=== PATIENT | female | born 1990 | race Caucasian/White ===

== ENCOUNTER 2024-11-28 14:02 | Observation (INO) | payer SELFPAY ==
[~2024-11-28] VITALS: Ht 165.1 cm; Wt 53.6 kg
== END 2024-11-29 10:10 | disposition left against medical advice (07) ==
LOC: ER 14:02 → MEDS 14:03
PROVIDERS: ADMIT Internal Medicine
DX: R57.1 Hypovolemic shock (principal); R65.10 Systemic inflammatory response syndrome (SIRS) of non-infectious origin without acute organ dysfunction; E87.20 Acidosis, unspecified; E87.1 Hypo-osmolality and hyponatremia; F17.210 Nicotine dependence, cigarettes, uncomplicated; J45.909 Unspecified asthma, uncomplicated; R55 Syncope and collapse; Z53.21 Procedure and treatment not carried out due to patient leaving prior to being seen by health care provider; Z88.0 Allergy status to penicillin